=== PATIENT | male | born 1965 | race Caucasian/White ===

== ENCOUNTER 2022-04-19 21:53 | Emergency (ER) | payer OTHER ==
--- NOTE | 2022-04-19 22:01 | ERPHSYRPT ---
- History of Present Illness Time Seen by Provider: 04/19/22 22:01 Source: patient Exam Limitations: no limitations Physician History: This is a right-handed 57-year-old white male who was working with a jig grinder approximately 21 hours ago when he lost control hitting his forearm on the left side and then his right inner heel of the right foot. He had it clean and taped up well. However, he came in to have it evaluated this evening. The patient has had a recent tetanus injection. Patient has not had a fever. Timing/Duration: yesterday Quality: painful Severity: mild Location: extremities (Left forearm and medial aspect right heel) Associated Symptoms: denies symptoms Allergies/Adverse Reactions: No Known Drug Allergies Allergy (Verified 04/19/22 22:39) Travel Risk - International Travel Have you traveled outside of the country in past 3 weeks: No - Coronavirus Screening Are you exhibiting any of the following symptoms?: No Close contact with a COVID-19 positive Pt in past 14-21 Days: No - Review of Systems Constitutional: No Symptoms Eyes: No Symptoms Ears, Nose, & Throat: No Symptoms Respiratory: No Symptoms Cardiac: No Symptoms Abdominal/Gastrointestinal: No Symptoms Genitourinary Symptoms: No Symptoms Musculoskeletal: No Symptoms Skin: Other (Approximately 6 cm axially oriented laceration medial aspect left forearm. 5 cm deep abrasion right heel without laceration.) Neurological: No Symptoms Psychological: No Symptoms Endocrine: No Symptoms Hematologic/Lymphatic: No Symptoms Immunological/Allergic: No Symptoms All Other Systems: Reviewed and Negative - Past Medical History Pertinent Past Medical History: Yes - Past Surgical History Past Surgical History: Yes - Nursing Vital Signs Nursing Vital Signs: Initial Vital Signs Temperature 97.8 F 04/19/22 22:24 Pulse Rate 88 04/19/22 22:24 Respiratory Rate 18 04/19/22 22:24 Blood Pressure 208/122 04/19/22 22:24 O2 Sat by Pulse Oximetry 100 04/19/22 22:24 Pain Scale Pain Intensity 1 - Physical Exam General Appearance: no apparent distress, alert, anxiety Eye Exam: PERRL/EOMI, eyes nml inspection Ears, Nose, Throat Exam: normal ENT inspection, moist mucous membranes Neck Exam: normal inspection, non-tender, supple, full range of motion Respiratory Exam: airway intact, No chest tenderness, No respiratory distress Gastrointestinal/Abdomen Exam: tenderness Rectal Exam: not done Back Exam: normal inspection, normal range of motion, No CVA tenderness, No vertebral tenderness Extremity Exam: lacerations (Medial aspect left forearm approximately 6 cm. No foreign body. 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, normal mood/affect, nml cerebellar function, nml station & gait, sensation nml Skin Exam: laceration Lymphatic Exam: No adenopathy (The above) SpO2 Interpretation: normal O2 Delivery: Room Air Procedures - Laceration/Wound Repair Left Volar Arm Time of Procedure: 22:40 Wound Location: Left, lower arm (Forearm medial aspect) Wound Length (cm): 6 Wound's Depth, Shape: superficial, linear Wound Explored: clean (Evaluation was to the base in a bloodless field with no foreign body noted) Irrigated: Yes Hibiclens Prep: Yes Wound Repaired With: [place] (To [place] were placed to loosely approximate this 21-hour old laceration) Progress: 04/19/22 22:51 Right medial heel deep abrasion was irrigated out with Hibiclens solution and scrubbed. Area was then dried and a thin layer of antibiotic ointment was a pplied and a pressure dressing was also applied. Pressure dressing applied to both sites. - Course Nursing assessment & vital signs reviewed: Yes - Progress Progress: improved Counseled pt/family regarding: diagnosis, need for follow-up - Departure Departure Disposition: Home Clinical Impression: Laceration of left forearm, Abrasion of right heel Condition: Stable Critical Care Time: No Additional Instructions: Keep current dressings in place for 24 hours. After 24 hours, may remove dressing and then wash the sites daily thereafter with soap and water. After you wash each site, blot dry use a hairdryer and reapply antibiotic ointment and a bandage. Staple removal in 8 days. Take your medication as prescribed. Prescriptions: Cephalexin Mh 500 mg [Keflex 500 mg] 500 mg PO TID #21 cap
[2022-04-19] MEDS ORDERED: KEFLEX 500 MG PO ONE (22:45)
[2022-04-19] MEDS ORDERED: KEFLEX 500 MG ONE (22:56)
[2022-04-19] MEDS ORDERED: BACIGUENT PACKET ONE (22:56)
[2022-04-19] MEDS ORDERED: BACIGUENT PACKET TP ONE (22:59)
[2022-04-19 23:12] VITALS: BP 182/95; PULSE 78; O2SAT 98
== END 2022-04-19 23:18 | disposition home or self-care (01) ==
LOC: ED 21:53
DX: S51.812A Laceration without foreign body of left forearm, initial encounter (principal); S90.811A Abrasion, right foot, initial encounter; W29.8XXA Contact with other powered hand tools and household machinery, initial encounter
CPT/HCPCS: 12002; 99282; A9270-GY

== ENCOUNTER 2024-02-20 00:30 | Emergency (ER) | payer OTHER ==
[2024-02-20 00:53] VITALS: TEMP 97
[2024-02-20] MEDS ORDERED: XYLOCAINE 1% HCL 20 ML MDV ONE (01:12)
[2024-02-20] MEDS: XYLOCAINE 1% HCL 20 ML MDV SUBDERMAL ONE (01:39)
--- NOTE | 2024-02-20 01:50 | ERPHSYRPT ---
- History of Present Illness Time Seen by Provider: 02/20/24 01:25 Source: patient Exam Limitations: no limitations Patient Subjective Stated Complaint: cut to my leg, not sure if it needs stitches Triage Nursing Assessment: pt ambulated into ER without diff, alert and oriented x4. Pt c/o lacerations/scratches after chasing his cat and tripped over something, landing on some old cars/parts. Pt has a scratch/laceration to rt anterior lower leg measuring 27 cm in length, with a slight opened area toward the proximal area, small amount of blood noted. 5.5 cm scratch to rt anterior lower leg just lateral of the bigger scratch, no bleeding noted. 3 cm scratch noted to middle of forehead, no bleeding noted. Pt has a laceration to the inside of the mouth to the gum, lower left side, approx 1cm in length. Physician History: The patient presents with multiple skin injuries sustained after tripping over a junk car in the dark while chasing his cat. The patient reports falling "like a tree" and landing on his face, resulting in a cut on his right leg, face and a lip injury. The patient denies any allergies and reports no other symptoms or issues at this time. Timing/Duration: today Quality: painful Severity: mild Location: face, extremities (right [place]) Possible Causes: other (fall) Associated Symptoms: denies symptoms Allergies/Adverse Reactions: No Known Drug Allergies Allergy (Verified 04/19/22 22:39) Hx Tetanus, Diphtheria Vaccination/Date Given: Yes Hx Influenza Vaccination/Date Given: Yes Hx Pneumococcal Vaccination/Date Given: No Immunizations Up to Date: Yes Travel Risk - International Travel Have you traveled outside of the country in past 3 weeks: No - Emerging Infectious Disease Are you exhibiting symptoms associated with any current EIDs: No - Review of Systems All Other Systems: Reviewed and Negative - Past Medical History Pertinent Past Medical History: Yes Neurological History: No Pertinent History ENT History: No Pertinent History Cardiac History: No Pertinent History Respiratory History: No Pertinent History Endocrine Medical History: No Pertinent History Musculoskeletal History: Degenerative Disk Disease GI Medical History: No Pertinent History History: No Pertinent History Psycho-Social History: No Pertinent History Male Reproductive Disorders: No Pertinent History - Past Surgical History Past Surgical History: Yes Musculoskeletal: Orthopedic Surgery Other Surgical History: lower back sugery - Social History Smoking Status: Never smoker Exposure to second hand smoke: No Drug Use: none Patient Lives Alone: No - Social Determinants of Health Will the patient participate in the screening: Yes Do you worry about a steady place to live?: No Do you have any problems with any of the following?: No known problems In the past 12 months,have you had to go without utilities?: No Transportation Issues: No Has anyone in your support network made you feel unsafe?: No Have you or anyone in your house had to go without enough: No - Nursing Vital Signs Nursing Vital Signs: Initial Vital Signs Temperature 97.0 F 02/20/24 00:52 Pulse Rate 76 02/20/24 00:52 Respiratory Rate 16 02/20/24 00:52 Blood Pressure 141/77 02/20/24 00:52 O2 Sat by Pulse Oximetry 100 02/20/24 00:52 Pain Scale Pain Intensity 2 - Physical Exam General Appearance: no apparent distress SpO2: 100 Comments: 27 cm superficial laceration of the anterior aspect of the right lower leg with a widened area approximately covers about 5 cm in length without active blee ding. 5-1/2 cm superficial laceration without bleeding on the anterior lateral aspect of the right lower leg. 3 cm linear superficial laceration of the forehead with no active bleeding. 1 cm laceration of the lower lip but does not communicate with the inside of the lower lip. Q-tip was used to explore the wound and showed no communication. Patient held water in the front of his lip for 30 seconds with no evidence of disruption. Procedures - Laceration/Wound Repair Right Other Time of Procedure: 01:30 Wound Location: Right, forehead, face (lower lip), lower leg Wound Length (cm): 5 (3cm forehead, 1cm lower lip) Wound's Depth, Shape: superficial Wound Explored: no foreign body noted Irrigated: Yes Hibiclens Prep: Yes Anesthesia: 1% Lidocaine Volume Anesthetic (ccs): 10 Wound Debrided: minimal Wound Repaired With: Dermabond Layer Closure?: No Sterile Dressing Applied?: Yes Splint Applied?: No Sling Applied?: No - Course Nursing assessment & vital signs reviewed: Yes Ordered Tests: Medication Summary Discontinued Medications Generic Name Dose Route Start Last Admin Trade Name Freq PRN Reason Stop Dose Admin Lidocaine HCl Confirm 02/20/24 01:12 Lidocaine Hcl 1% 20 Ml Mdv 20 Ml Ml Administered 02/20/24 01:13 Dose 10 ml .ROUTE .STK-MED ONE Lidocaine HCl 10 ml 02/20/24 01:38 02/20/24 01:39 Lidocaine Hcl 1% 20 Ml Mdv 20 Ml Ml SUBDERMAL 02/20/24 01:39 10 ml STAT ONE Administration - Progress Progress: improved Counseled pt/family regarding: need for follow-up Medical Desision Making - Diagnostic Testing Diagnostic test were ordered, analyzed, and reviewed by me: No - Risk of complications The pt has a mod risk of morbidity or mortality based on: Need for prescription drug management - Departure Departure Disposition: Home Clinical Impression: Laceration Condition: Good Critical Care Time: No Referrals: LUIS FELIPE WALDROP MD [Primary Care Provider] - Follow up/PCP as directed Instructions: Laceration Repair With Glue (DC) Prescriptions: Doxycycline Hyclate 100 mg PO BID 7 Days #14 cap
[2024-02-20 01:55] VITALS: BP 159/91; PULSE 74; RESP 16
[2024-02-20 02:04] VITALS: O2SAT 100
== END 2024-02-20 01:55 | disposition home or self-care (01) ==
LOC: ED 00:30
DX: S81.811A Laceration without foreign body, right lower leg, initial encounter (principal); S01.81XA Laceration without foreign body of other part of head, initial encounter; S01.511A Laceration without foreign body of lip, initial encounter; W01.0XXA Fall on same level from slipping, tripping and stumbling without subsequent striking against object, initial encounter
CPT/HCPCS: 12002; 12013; 99282